=== PATIENT | male | born 1980 | race African-American/Black ===

== ENCOUNTER 2020-01-26 21:54 | Inpatient (IN) ==
[2020-01-26 22:29] LABS: Basophils # (auto) 0.02 K/uL (0-0.2); Basophils % (auto) 0.3 %; Eosinophils # (auto) 0.08 K/uL (0-0.5); Eosinophils % (auto) 1.2 %; Hematocrit (blood only) 42.3 % (42-52); Immature Granulocytes # (auto) 0.01 K/uL (0.00-0.02); Immature Granulocytes % (auto) 0.1 %; Lymphocytes # (auto) 3.16 K/uL (1.2-3.4); Lymphocytes % (auto) 46.6 %; Mean Corpuscular Hemoglobin 29.9 pg (25-34); Mean Corpuscular Hgb Conc 35.5 g/dL (32-36); Mean Corpuscular Volume 84.4 fL (80-100); Mean Platelet Volume 9.4 fL (7.4-10.4); Monocytes # (auto) 0.54 K/uL (0.11-0.59); Neutrophils # (auto) 2.97 K/uL (1.4-6.5); Neutrophils % (auto) 43.8 %; Platelet Count 390 K/uL (130-400); RDW Coefficient of Variation 12.4 % (11.5-14.5); RDW Standard Deviation 37.8 fL (36.4-46.3); Red Blood Count 5.01 M/uL (4.7-6.1); White Blood Count 6.78 K/uL (4.8-10.8)
[2020-01-26 22:49] LABS: Appearance Urine Clear (Clear); Bilirubin Urine Negative (Negative); Blood Urine Negative (Negative); Color Urine Yellow; Glucose Urine UA 3+ (Negative); Ketones Urine 1+ (Negative); Leukocyte Esterase Urine Negative (Negative); Nitrite Urine Negative (Negative); Protein Urine Negative (Negative); Specific Gravity Urine 1.039 (1.000-1.030); Urobilinogen Urine Negative (Negative)
[2020-01-26 22:58] LABS: Alanine Aminotransferase 34 U/L (12-78); Albumin Globulin Ratio 0.8 (0.9-2); Albumin Level 3.9 gm/dl (3.4-5.0); Alkaline Phosphatase 116 U/L (45-117); Aspartate Aminotransferase 15 U/L (15-37); BUN Creatinine Ratio 12.7 (10-20); Bilirubin,Total 0.6 mg/dl (0.2-1); Blood Urea Nitrogen 22 mg/dl (7-18); Calcium 10.2 mg/dl (8.5-10.1); Carbon Dioxide 21 mmol/L (21-32); Chloride 90 mmol/L (98-107); Creatinine Clr Calc Pharmacy 79.8 ml/min; Est GFR (African American) 55.6; Globulin 5.1 gm/dl (2.5-4.0); Glucose 669 mg/dl (70-99); Potassium 4.2 mmol/L (3.5-5.1); Sodium 124 mmol/L (136-145)
[2020-01-26] MEDS ORDERED: NovoLIN-R INSULIN PER UNIT CHARGE SC STA (23:17)
--- NOTE | 2020-01-26 23:17 | Emergency Department Note ---
History of Present Illness General Chief complaint: Hyperglycemia Stated complaint: HIGH BLOOD SUGAR Time Seen by Provider: 01/26/20 22:47 History of Present Illness Maximum Pain Intensity: 7 This is a 39-year-old male presenting to the emergency department from [facility] for evaluation of polyuria, polydipsia, lightheadedness, dizziness worsening over the past 2 days. The patient was seen in the [facility], and had a fingerstick glucose greater than 600. The patient was referred to the ER for further evaluation. The patient does not have a history of diabetes, but states that his father did have diabetes. The patient has been excessively thirsty, but does not report chest pain, chest tightness, or shortness of breath. No fevers or chills. He does take hydrochlorothiazide on a regular basis but no other medications. He rates his current discomfort a 7/10. 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 Beliefs That Will Affect Care: None Current Living Situation: Other Current Living Situation Comment: Skilled Nursing Feels Safe at Home: Yes Smoking Status: Former smoker Hx Alcohol Use: No Hx Substance Use: No Review of Systems A total of 10 systems reviewed and were otherwise negative Physical Exam Vital Signs Vital Signs - 24 hr 01/26/20 22:00 Temperature 37.1 C Temperature Source Oral Pulse Rate 116 H Respiratory Rate 20 Blood Pressure 145/76 H Blood Pressure Mean 99 Blood Pressure Position Sitting Pulse Oximetry 95 Oxygen Delivery Method Room Air Sepsis Recent Fever Within 48 Hours No Sepsis New/Unexplained Change in Mental Status No Sepsis Action Taken by Nursing No Action Required VITALS: Vitals are noted on the nurse's note and reviewed by myself. Vital signs stable. GENERAL: Well-developed, well-nourished, black male, who is in no acute distress and resting comfortably. Patient is cooperative with the examination. HEAD: Normocephalic atraumatic. EARS: External ear normal. External auditory canals clear, tympanic membranes pearly love without erythema or effusion bilaterally. EYES: Pupils equal round and reactive to light and accommodation. Conjunctivae without injection, sclerae without icterus. Extraocular movements intact. NOSE: Patent, turbinates without inflammation or discharge. MOUTH: Mucous membranes moist. Tonsils are not enlarged. Pharynx without erythema, blood, or exudate. Uvula midline. Airway patent. NECK: Supple without nuchal rigidity. No lymphadenopathy. No thyromegaly. Cervical spine is nontender. HEART: Regular rate and rhythm without murmurs gallops or rubs. LUNGS: Clear to auscultation bilaterally without wheezes, rales or rhonchi. No retractions or accessory muscle use. ABDOMEN: Positive normal bowel sounds x 4. Soft, nontender, without masses or organomegaly. No guarding or rebound tenderness. MUSCULOSKELETAL: No muscle atrophy, erythema, or edema noted. Full range of motion in all extremities. No tenderness to palpation. Normal gait. Strength 5/5 throughout. NEURO: Patient was alert and oriented to person place and time. CN II through XII grossly intact. No focal neurological deficits. Deep tendon reflexes 2+ throughout. SKIN: The skin was without rashes, erythema, edema, or bruising. Capillary refill less than 2 seconds. Course Administered Medications Acetaminophen (Tylenol) 650 mg PO Q4H PRN PRN Reason: Pain or Fever Stop: 02/26/20 02:09 Last Admin: 01/27/20 12:26 Dose: 650 mg Documented by: [id number] Heparin Sodium (Porcine) (Heparin Sodium (Porcine)) 5,000 units SQ Q8 [facility] Stop: 02/26/20 05:59 Last Admin: 01/27/20 21:30 Dose: 5,000 units Documented by: [id number] Cosigned by: [id number] Admin: 01/27/20 13:47 Dose: 5,000 units Documented by: [id number] Cosigned by: [id number] Admin: 01/27/20 05:35 Dose: 5,000 units Documented by: [id number] Cosigned by: [id number] Insulin Human Regular 250 (units/ Sodium Chloride) 250 mls @ 3 mls/hr IV .Q24H [facility]ORTENCIA; Protocol Stop: 02/26/20 00:29 Last Titration: 01/27/20 23:41 Dose: 3 units/hr, 3 mls/hr Documented by: [id number] Cosigned by: [id number] Titration: 01/27/20 22:42 Dose: 3 units/hr, 3 mls/hr Documented by: [id number] Cosigned by: [id number] Titration: 01/27/20 21:41 Dose: 3.8 units/hr, 3.8 mls/hr Documented by: [id number] Cosigned by: [id number] Titration: 01/27/20 21:24 Dose: 0 units/hr, 0 mls/hr Documented by: [id number] Cosigned by: [id number] Titration: 01/27/20 20:21 Dose: 4.8 units/hr, 4.8 mls/hr Documented by: [id number] Cosigned by: [id number] Titration: 01/27/20 19:26 Dose: 6 units/hr, 6 mls/hr Documented by: [id number] Cosigned by: [id number] Titration: 01/27/20 19:10 Dose: 6 units/hr, 6 mls/hr Documented by: [id number] Cosigned by: [id number] Titration: 01/27/20 18:18 Dose: 6 units/hr, 6 mls/hr Documented by: [id number] Cosigned by: [id number] Titration: 01/27/20 17:15 Dose: 4.3 units/hr, 4.3 mls/hr Documented by: [id number] Cosigned by: [id number] Titration: 01/27/20 16:17 Dose: 5.4 units/hr, 5.4 mls/hr Documented by: [id number] Cosigned by: [id number] Titration: 01/27/20 15:13 Dose: 6.7 units/hr, 6.7 mls/hr Documented by: [id number] Cosigned by: [id number] Titration: 01/27/20 14:14 Dose: 6.7 units/hr, 6.7 mls/hr Documented by: [id number] Cosigned by: [id number] Titration: 01/27/20 13:23 Dose: 5.6 units/hr, 5.6 mls/hr Documented by: [id number] Cosigned by: [id number] Titration: 01/27/20 10:57 Dose: 4 units/hr, 4 mls/hr Documented by: [id number] Cosigned by: [id number] Titration: 01/27/20 09:55 Dose: 4 units/hr, 4 mls/hr Documented by: [id number] Cosigned by: [id number] Titration: 01/27/20 08:49 Dose: 4 units/hr, 4 mls/hr Documented by: [id number] Cosigned by: [id number] Titration: 01/27/20 07:37 Dose: 0 units/hr, 0 mls/hr Documented by: [id number] Cosigned by: [id number] Titration: 01/27/20 06:27 Dose: 6.6 units/hr, 6.6 mls/hr Documented by: [id number] Cosigned by: [id number] Titration: 01/27/20 05:28 Dose: 8.2 units/hr, 8.2 mls/hr Documented by: [id number] Cosigned by: [id number] Titration: 01/27/20 04:35 Dose: 8.2 units/hr, 8.2 mls/hr Documented by: [id number] Cosigned by: [id number] Titration: 01/27/20 03:41 Dose: 8.2 units/hr, 8.2 mls/hr Documented by: [id number] Cosigned by: [id number] Titration: 01/27/20 02:29 Dose: 6.8 units/hr, 6.8 mls/hr Documented by: [id number] Cosigned by: [id number] Admin: 01/27/20 01:18 Dose: 5.7 units/hr, 5.7 mls/hr Documented by: [id number] Cosigned by: [id number] Insulin Aspart (Novolog Flexpen) 0 units SC ACHS [facility] Stop: 02/26/20 07:29 Last Admin: 01/27/20 21:25 Dose: Not Given Documented by: [id number] Cosigned by: [id number] Admin: 01/27/20 17:16 Dose: 13 units Documented by: [id number] Cosigned by: [id number] Admin: 01/27/20 12:24 Dose: 14 units Documented by: [id number] Cosigned by: [id number] Admin: 01/27/20 08:04 Dose: 8 units Documented by: [id number] Cosigned by: [id number] Insulin Human NPH (Novolin N Nph) 0 units SC BIDM HORTENCIA; Protocol Stop: 02/26/20 16:59 Last Admin: 01/27/20 17:15 Dose: 30 units Documented by: [id number] Cosigned by: [id number] Discontinued Medications Sodium Chloride (Nss 1000ml) 1,000 mls @ 999 mls/hr IV .Q1H1M [facility] Stop: 01/27/20 01:10 Last Infusion: 01/27/20 02:35 Dose: 0 mls/hr Documented by: [id number] Admin: 01/27/20 01:18 Dose: 999 mls/hr Documented by: [id number] Infusion: 01/27/20 00:51 Dose: 999 mls/hr Documented by: [id number] Admin: 01/26/20 23:50 Dose: 999 mls/hr Documented by: [id number] Lactated Ringer's (Lr) 1,000 mls @ 100 mls/hr IV .Q10H [facility] Stop: 01/27/20 12:14 Last Infusion: 01/27/20 09:52 Dose: 0 mls/hr Documented by: [id number] Infusion: 01/27/20 05:02 Dose: 100 mls/hr Documented by: [id number] Admin: 01/27/20 02:25 Dose: 200 mls/hr Documented by: [id number] Insulin Human NPH (Novolin N Nph) 30 units SC BIDM [facility] Stop: 02/26/20 07:59 Last Admin: 01/27/20 08:45 Dose: 30 units Documented by: [id number] Cosigned by: [id number] Insulin Human Regular (Novolin R U-100 Per Unit) 10 units SC NOW STA Stop: 01/26/20 23:18 Last Admin: 01/26/20 23:50 Dose: 10 units Documented by: [id number] Cosigned by: [id number] Insulin Human Regular (Novolin R Bolus From Bag) 5.5 units IV ONE ONE Stop: 01/27/20 00:46 Last Admin: 01/27/20 01:22 Dose: 5.5 units Documented by: [id number] Cosigned by: [id number] Miscellaneous (Insulin Protocol Goal Range) 1 ea N/A ONE STA Stop: 01/27/20 00:21 Last Admin: 01/27/20 01:23 Dose: 1 ea Documented by: [id number] Miscellaneous (Insulin Protocol Severe Stress) 1 ea N/A ONE STA Stop: 01/27/20 00:22 Last Admin: 01/27/20 01:23 Dose: 1 ea Documented by: [id number] Critical Care Time I have personally spent greater than 37 minutes of critical care time in the direct management of this patient. This includes bedside care, interpretation of diagnostic studies, and testing, discussion with consultants, patient, and family members, and other required patient management activities. This 37 minutes is in excess of all separately billable procedures. Medical Decision Making Differential Diagnosis Differential diagnosis: Etiologies such as diabetes, DKA, hyperglycemia, benign positional vertigo, labrynthitis, dehydration, hypovolemia, anemia, tumor, infection, hypoglycemia, electrolyte abnormalities, cardiac sources, toxicological sources, central neurologic process, as well as others were entertained. Laboratory Data Result diagrams: 01/27/20 03:56 01/27/20 03:56 Lab Results 01/26/20 01/26/20 01/26/20 Range/Units 22:06 22:12 22:18 WBC 6.78 (4.8-10.8) K/uL RBC 5.01 (4.7-6.1) M/uL Hgb 15.0 (14.0-18.0) g/dL Hct 42.3 (42-52) % MCV 84.4 (80-100) fL MCH 29.9 (25-34) pg MCHC 35.5 (32-36) g/dL RDW Std Deviation 37.8 (36.4-46.3) fL RDW Coeff of Donna 12.4 (11.5-14.5) % Plt Count 390 (130-400) K/uL MPV 9.4 (7.4-10.4) fL Immature Gran % (Auto) 0.1 % Neut % (Auto) 43.8 % Lymph % (Auto) 46.6 % [place] % (Auto) 8.0 % Eos % (Auto) 1.2 % Baso % (Auto) 0.3 % Immature Gran # (Auto) 0.01 (0.00-0.02) K/uL Neut # (Auto) 2.97 (1.4-6.5) K/uL Lymph # (Auto) 3.16 (1.2-3.4) K/uL [place] # (Auto) 0.54 (0.11-0.59) K/uL Eos # (Auto) 0.08 (0-0.5) K/uL Baso # (Auto) 0.02 (0-0.2) K/uL Sodium (136-145) mmol/L Potassium (3.5-5.1) mmol/L Chloride (98-107) mmol/L Carbon Dioxide (21-32) mmol/L Anion Gap (3-11) BUN (7-18) mg/dl Creatinine (0.6-1.4) mg/dl Est Cr Clr Drug Dosing ml/min Est GFR ( Amer) Est GFR (Non-Af Amer) BUN/Creatinine Ratio (10-20) Glucose (70-99) mg/dl POC Glucose > 600 H* 598 H* (70-99) mg/dl Estimat Average Glucose mg/dl Hemoglobin A1c (4.5-5.6) % Osmolality (280-300) mOsm/kg Calcium (8.5-10.1) mg/dl Magnesium (1.8-2.4) mg/dl Total Bilirubin (0.2-1) mg/dl AST (15-37) U/L ALT (12-78) U/L Alkaline Phosphatase (45-117) U/L Troponin I (0-0.045) ng/ml Total Protein (6.4-8.2) gm/dl Albumin (3.4-5.0) gm/dl Globulin (2.5-4.0) gm/dl Albumin/Globulin Ratio (0.9-2) Lipase (73-393) U/L Beta-Hydroxybutyric Acd (0.2-2.81) mg/dl TSH (0.300-4.500) uIu/ml Specimen Hemolysis Urine Color Urine Appearance (Clear) Urine pH (4.5-7.5) Ur Specific [place] (1.000-1.030) Urine Protein (Negative) Urine Glucose (UA) (Negative) Urine Ketones (Negative) Urine Blood (Negative) Urine Nitrite (Negative) Urine Bilirubin (Negative) Urine Urobilinogen (Negative) Ur Leukocyte Esterase (Negative) Urine Osmolality (500-800) mOsm/kg Ur Random Sodium mmol/L 01/26/20 01/26/20 01/26/20 Range/Units 22:18 22:18 22:18 WBC (4.8-10.8) K/uL RBC (4.7-6.1) M/uL Hgb (14.0-18.0) g/dL Hct (42-52) % MCV (80-100) fL MCH (25-34) pg MCHC (32-36) g/dL RDW Std Deviation (36.4-46.3) fL RDW Coeff of Donna (11.5-14.5) % Plt Count (130-400) K/uL MPV (7.4-10.4) fL Immature Gran % (Auto) % Neut % (Auto) % Lymph % (Auto) % [place] % (Auto) % Eos % (Auto) % Baso % (Auto) % Immature Gran # (Auto) (0.00-0.02) K/uL Neut # (Auto) (1.4-6.5) K/uL Lymph # (Auto) (1.2-3.4) K/uL [place] # (Auto) (0.11-0.59) K/uL Eos # (Auto) (0-0.5) K/uL Baso # (Auto) (0-0.2) K/uL Sodium 124 L (136-145) mmol/L Potassium 4.2 (3.5-5.1) mmol/L Chloride 90 L (98-107) mmol/L Carbon Dioxide 21 (21-32) mmol/L Anion Gap 12.0 H (3-11) BUN 22 H (7-18) mg/dl Creatinine 1.73 H (0.6-1.4) mg/dl Est Cr Clr Drug Dosing 79.8 ml/min Est GFR ( Amer) 55.6 Est GFR (Non-Af Amer) 48.0 BUN/Creatinine Ratio 12.7 (10-20) Glucose 669 H* (70-99) mg/dl POC Glucose (70-99) mg/dl Estimat Average Glucose 275 mg/dl Hemoglobin A1c 11.2 H (4.5-5.6) % Osmolality 311 H (280-300) mOsm/kg Calcium 10.2 H (8.5-10.1) mg/dl Magnesium 2.1 (1.8-2.4) mg/dl Total Bilirubin 0.6 (0.2-1) mg/dl AST 15 (15-37) U/L ALT 34 (12-78) U/L Alkaline Phosphatase 116 (45-117) U/L Troponin I < 0.015 (0-0.045) ng/ml Total Protein 9.0 H (6.4-8.2) gm/dl Albumin 3.9 (3.4-5.0) gm/dl Globulin 5.1 H (2.5-4.0) gm/dl Albumin/Globulin Ratio 0.8 L (0.9-2) Lipase 285 (73-393) U/L Beta-Hydroxybutyric Acd 18.38 H (0.2-2.81) mg/dl TSH 1.250 (0.300-4.500) uIu/ml Specimen Hemolysis Urine Color Urine Appearance (Clear) Urine pH (4.5-7.5) Ur Specific [place] (1.000-1.030) Urine Protein (Negative) Urine Glucose (UA) (Negative) Urine Ketones (Negative) Urine Blood (Negative) Urine Nitrite (Negative) Urine Bilirubin (Negative) Urine Urobilinogen (Negative) Ur Leukocyte Esterase (Negative) Urine Osmolality (500-800) mOsm/kg Ur Random Sodium mmol/L 01/26/20 01/26/20 01/26/20 Range/Units 22:35 22:35 22:35 WBC (4.8-10.8) K/uL RBC (4.7-6.1) M/uL Hgb (14.0-18.0) g/dL Hct (42-52) % MCV (80-100) fL MCH (25-34) pg MCHC (32-36) g/dL RDW Std Deviation (36.4-46.3) fL RDW Coeff of Donna (11.5-14.5) % Plt Count (130-400) K/uL MPV (7.4-10.4) fL Immature Gran % (Auto) % Neut % (Auto) % Lymph % (Auto) % [place] % (Auto) % Eos % (Auto) % Baso % (Auto) % Immature Gran # (Auto) (0.00-0.02) K/uL Neut # (Auto) (1.4-6.5) K/uL Lymph # (Auto) (1.2-3.4) K/uL [place] # (Auto) (0.11-0.59) K/uL Eos # (Auto) (0-0.5) K/uL Baso # (Auto) (0-0.2) K/uL Sodium (136-145) mmol/L Potassium (3.5-5.1) mmol/L Chloride (98-107) mmol/L Carbon Dioxide (21-32) mmol/L Anion Gap (3-11) BUN (7-18) mg/dl Creatinine (0.6-1.4) mg/dl Est Cr Clr Drug Dosing ml/min Est GFR ( Amer) Est GFR (Non-Af Amer) BUN/Creatinine Ratio (10-20) Glucose (70-99) mg/dl POC Glucose (70-99) mg/dl Estimat Average Glucose mg/dl Hemoglobin A1c (4.5-5.6) % Osmolality (280-300) mOsm/kg Calcium (8.5-10.1) mg/dl Magnesium (1.8-2.4) mg/dl Total Bilirubin (0.2-1) mg/dl AST (15-37) U/L ALT (12-78) U/L Alkaline Phosphatase (45-117) U/L Troponin I (0-0.045) ng/ml Total Protein (6.4-8.2) gm/dl Albumin (3.4-5.0) gm/dl Globulin (2.5-4.0) gm/dl Albumin/Globulin Ratio (0.9-2) Lipase (73-393) U/L Beta-Hydroxybutyric Acd (0.2-2.81) mg/dl TSH (0.300-4.500) uIu/ml Specimen Hemolysis Urine Color Yellow Urine Appearance Clear (Clear) Urine pH 5.0 (4.5-7.5) Ur Specific [place] 1.039 H (1.000-1.030) Urine Protein Negative (Negative) Urine Glucose (UA) 3+ H (Negative) Urine Ketones 1+ H (Negative) Urine Blood Negative (Negative) Urine Nitrite Negative (Negative) Urine Bilirubin Negative (Negative) Urine Urobilinogen Negative (Negative) Ur Leukocyte Esterase Negative (Negative) Urine Osmolality 667 (500-800) mOsm/kg Ur Random Sodium 27 mmol/L Imaging Data Radiologist's Impression: XR chest 1V portable CLINICAL HISTORY: renal failure COMPARISON STUDY: No previous studies for comparison. FINDINGS: The cardiac and mediastinal contours are normal. There is no evidence of focal pulmonary consolidation. There is no evidence of failure. No pleural effusions are visualized.[A vague opacity at the left lung base is felt to represent a summation. IMPRESSION: No active disease in the chest. ECG Data Attestation: I personally reviewed and interpreted this ECG as follows: Indication: + other (Hyperglycemia) Additional Comments: Normal sinus rhythm @[address] elevation or ectopy Prolonged QT Abnormal ECG No previous ECGs available MDM Narrative Physical exam and history were performed. Nursing notes, EMR, and Medication List were personally reviewed. Patient appears to have reports of elevated blood sugar at the half-way. He is not diabetic, but his story is concerning as his sugar was reported to be over 600. IV access was established and labs were obtained. We began to hydrate the patient with normal saline. EKG is as above without acute ST elevation. Patient blood work is as above and was reviewed. He does not have a significantly elevated white blood cell count or gross anemia. Creatinine is slightly elevated at 1.41. Glucose is concerning as it has returned at 669. He is ketotic with beta hydroxy greater than 18. Serum osmolality is elevated at 311. Troponin and transaminases are not diagnostic. TSH shows euthyroid state. He does have glucose in his urine. Chest x-ray was reviewed by myself and radiology showing no acute process. The patient was given additional IV fluids as well as 10 units subcu insulin. An order was placed for continuous cardiac monitoring. The monitor shows a rate of 81 with normal sinus rhythm. Overall the patient does not appear well for discharge home. He is significantly hyperglycemic with ketones. Case was discussed with the on-call hospitalist team who agreed to evaluate the patient here in the ER. Please see their dictation for further patient course, plan, disposition. The chart was completed utilizing [employer] Speech Voice Recognition Software. Grammatical errors, random word insertions, pronoun errors, and incomplete sentences are an occasional consequence of this system due to software limitations, ambient noise, and hardware issues. Any formal questions or concerns about the content, text, or information contained within the body of this dictation should be directly addressed to the provider for clarification. . Impression & Plan Hyperglycemic crisis in diabetes mellitus, Newly diagnosed diabetes Discharge Plan Visit Data *Final* Discharge Date/Time: 01/27/20 02:03 Chief Complaint: Hyperglycemia Stated Complaint: HIGH BLOOD SUGAR ED Provider: Júnior Cohen ED Midlevel Provider: Orion Romero Discharge Problem: Hyperglycemic crisis in diabetes mellitus, Newly diagnosed diabetes Patient Disposition: Admitted As Inpatient Discharge Instructions Interventions: ED Discharge Assessment Last Done: 01/27/20 02:03
[2020-01-26 23:28] LABS: Beta-Hydroxybutyrate 18.38 mg/dl (0.2-2.81)
[2020-01-26] MEDS: SODIUM CHLORIDE 0.9% 1000ML 1,000 ML IV SCH (23:50)
[2020-01-27] MEDS ORDERED: INSULIN PROTOCOL GOAL RANGE STA (00:20)
[2020-01-27] MEDS ORDERED: SEVERE STRESS LEVEL STA (00:21)
[2020-01-27 00:33] LABS: Lipase 285 U/L (73-393)
--- NOTE | 2020-01-27 00:42 | History & Physical Report ---
Date of Service January 27, 2020 Assessment & Plan (1) Hyperglycemic crisis in diabetes mellitus: New diagnosis of diabetes mellitus Hypertension, slight elevated ARF secondary to illness, home diuretic contributory Past tobacco abuse Medical telemetry IV insulin Pharmacy glycemic control consult DM education Monitor creatinine response to IVF Hold HCTZ for now Consider initiation of ACEI once kidney function improves. Outpatient eye examination RE blurred vision, new diagnosis DM DVT prophylaxis. Heparin subcu Full code Text document was generated using [employer] voice recognition software. It may contain grammatical or spelling errors. Kindly contact undersigned for clarification of any documentation item in question. History of Present Illness Chief Complaint: High blood sugar Primary Care Provider: SOPHIA Torres History obtained from patient and records. Medical history significant for hypertension, past tobacco abuse. Patient has been incarcerated at [facility] by the last 2 months. Last week, patient noted polyuria, polydipsia, dizziness described as lightheadedness symptoms. Some blurred vision. No chest pain, no S OB, no abdominal pain. Appetite good. Fingerstick glucose done at correctional facility noted to be 600. Patient given subcutaneous insulin and IV fluids upon arrival at the ER. 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 Allergies Allergy/AdvReac Type Severity Reaction Status Date / Time No Known Allergies Allergy Unverified 01/26/20 23:08 Home Medications Home Medications Medication Instructions Recorded Confirmed Type hydrochlorothiazide 12.5 mg PO DAILY 01/26/20 01/26/20 History undecylenic acid [Fungi-Nail] 1 applic TOPICAL DAILY 01/26/20 01/26/20 History Past Med/Surg History Medical History Hypertension Surgical History History of hernia repair Social History Preferred Language: Irish Communication Ability: Effective Electrical Appliance Servicer Required: No Beliefs That Will Affect Care: None Current Living Situation: Other Current Living Situation Comment: [facility] Feels Safe at Home: Yes Smoking Status: Former smoker Hx Alcohol Use: No Hx Substance Use: No Review of Systems Review of Systems: As per HPI, all 10 systems reviewed, all other ROS negative Physical Exam Physical Exam: GENERAL: Comfortable, obese, pleasant, no respiratory distress SKIN: Normal color, warm HEENT: [place] palpebral conjunctivae, no ptosis, dry buccal mucosa NECK : Supple, short neck, no tenderness CHEST : CTA, no tenderness HEART : Tachycardic, no obvious murmurs ABDOMEN: Some distention, nontender EXTREMITIES : Minimal LE swelling, no LE tenderness, no other conspicuous deformities noted NEUROLOGIC : Coherent, no facial asymmetry, no other gross focality Results & Data Results & Data ([facility]) Vital Signs (Past 12 Hours) Vital Signs Temp Pulse Resp BP Pulse Ox 01/26/20 22:00 37.1 C 116 H 20 145/76 H 95 Laboratory Results Laboratory Results WBC 6.78 K/uL (4.8-10.8) 01/26/20 22:18 RBC 5.01 M/uL (4.7-6.1) 01/26/20 22:18 Hgb 15.0 g/dL (14.0-18.0) 01/26/20 22:18 Hct 42.3 % (42-52) 01/26/20 22:18 MCV 84.4 fL (80-100) 01/26/20 22:18 MCH 29.9 pg (25-34) 01/26/20 22:18 MCHC 35.5 g/dL (32-36) 01/26/20 22:18 RDW Std Deviation 37.8 fL (36.4-46.3) 01/26/20 22:18 RDW Coeff of Donna 12.4 % (11.5-14.5) 01/26/20 22:18 Plt Count 390 K/uL (130-400) 01/26/20 22:18 MPV 9.4 fL (7.4-10.4) 01/26/20 22:18 Immature Gran % (Auto) 0.1 % 01/26/20 22:18 Neut % (Auto) 43.8 % 01/26/20 22:18 Lymph % (Auto) 46.6 % 01/26/20 22:18 [place] % (Auto) 8.0 % 01/26/20 22:18 Eos % (Auto) 1.2 % 01/26/20 22:18 Baso % (Auto) 0.3 % 01/26/20 22:18 Immature Gran # (Auto) 0.01 K/uL (0.00-0.02) 01/26/20 22:18 Neut # (Auto) 2.97 K/uL (1.4-6.5) 01/26/20 22:18 Lymph # (Auto) 3.16 K/uL (1.2-3.4) 01/26/20 22:18 [place] # (Auto) 0.54 K/uL (0.11-0.59) 01/26/20 22:18 Eos # (Auto) 0.08 K/uL (0-0.5) 01/26/20 22:18 Baso # (Auto) 0.02 K/uL (0-0.2) 01/26/20 22:18 Sodium 124 mmol/L (136-145) L 01/26/20 22:18 Potassium 4.2 mmol/L (3.5-5.1) 01/26/20 22:18 Chloride 90 mmol/L (98-107) L 01/26/20 22:18 Carbon Dioxide 21 mmol/L (21-32) 01/26/20 22:18 Anion Gap 12.0 (3-11) H 01/26/20 22:18 BUN 22 mg/dl (7-18) H 01/26/20 22:18 Creatinine 1.73 mg/dl (0.6-1.4) H 01/26/20 22:18 Est Cr Clr Drug Dosing 79.8 ml/min 01/26/20 22:18 Est GFR ( Amer) 55.6 01/26/20 22:18 Est GFR (Non-Af Amer) 48.0 01/26/20 22:18 BUN/Creatinine Ratio 12.7 (10-20) 01/26/20 22:18 Glucose 669 mg/dl (70-99) H* 01/26/20 22:18 POC Glucose 598 mg/dl (70-99) H* 01/26/20 22:12 Calcium 10.2 mg/dl (8.5-10.1) H 01/26/20 22:18 Total Bilirubin 0.6 mg/dl (0.2-1) 01/26/20 22:18 AST 15 U/L (15-37) 01/26/20 22:18 ALT 34 U/L (12-78) 06/05/20 22:18 Alkaline Phosphatase 116 U/L (45-117) 01/26/20 22:18 Total Protein 9.0 gm/dl (6.4-8.2) H 01/26/20 22:18 Albumin 3.9 gm/dl (3.4-5.0) 01/26/20 22:18 Globulin 5.1 gm/dl (2.5-4.0) H 01/26/20 22:18 Albumin/Globulin Ratio 0.8 (0.9-2) L 01/26/20 22:18 Lipase 285 U/L (73-393) 01/26/20 22:18 Beta-Hydroxybutyric Acd 18.38 mg/dl (0.2-2.81) H 01/26/20 22:18 Specimen Hemolysis 01/26/20 22:18 Urine Color Yellow 01/26/20 22:35 Urine Appearance Clear (Clear) 01/26/20 22:35 Urine pH 5.0 (4.5-7.5) 01/26/20 22:35 Ur Specific [place] 1.039 (1.000-1.030) H 01/26/20 22:35 Urine Protein Negative (Negative) 01/26/20 22:35 Urine Glucose (UA) 3+ (Negative) H 01/26/20 22:35 Urine Ketones 1+ (Negative) H 01/26/20 22:35 Urine Blood Negative (Negative) 01/26/20 22:35 Urine Nitrite Negative (Negative) 01/26/20 22:35 Urine Bilirubin Negative (Negative) 01/26/20 22:35 Urine Urobilinogen Negative (Negative) 01/26/20 22:35 Ur Leukocyte Esterase Negative (Negative) 01/26/20 22:35 Diagnostic Findings Chest x-ray as per my interpretation: Cardiomegaly, atelectasis EKG pending
[2020-01-27] MEDS ORDERED: GLUCOSE 10 TABS/TUBE PO PRN (00:45)
[2020-01-27] MEDS ORDERED: DEXTROSE 50% 50 ML SYRINGE IV PRN (00:45)
[2020-01-27] MEDS ORDERED: CARBOHYDRATES FOR HYPOGLYCEMIA PO PRN (00:45)
[2020-01-27] MEDS ORDERED: NovoLIN-R BOLUS FROM BAG IV ONE (00:45)
[2020-01-27] MEDS ORDERED: GLUCOSE 40% GEL 15 GM TUBE PO PRN (00:45)
[2020-01-27] MEDS ORDERED: GLUCAGON FOR INJ 1 MG VIAL IM PRN (00:45)
[2020-01-27 00:53] LABS: Troponin I < 0.015 ng/ml (0-0.045)
[2020-01-27] MEDS: SODIUM CHLORIDE 0.9% 1000ML 1,000 ML IV SCH (01:18)
[2020-01-27] MEDS: INSULIN REGULAR 250 UNITS in SODIUM CHLORIDE 0.9% 247.5 ML IV SCH (01:18)
[2020-01-27] MEDS ORDERED: OXYCODONE HCL IR 5 MG TAB (IMMEDIATE RELEASE) PO PRN (02:10)
[2020-01-27] MEDS ORDERED: ACETAMINOPHEN 325 MG TAB PO PRN ×2 (02:10→02:14)
[2020-01-27] MEDS ORDERED: PROMETHAZINE HCL 12.5 MG in SODIUM CHLORIDE 0.9% 50 ML IV PRN (02:10)
[2020-01-27] MEDS ORDERED: LACTATED RINGER'S 1,000 ML IV SCH (02:15)
[2020-01-27 02:24] LABS: Magnesium 2.1 mg/dl (1.8-2.4)
[2020-01-27 04:11] LABS: Hematocrit (blood only) 40.1 % (42-52); Hemoglobin 14.1 g/dL (14.0-18.0); Mean Corpuscular Hemoglobin 29.5 pg (25-34); Mean Corpuscular Hgb Conc 35.2 g/dL (32-36); Mean Corpuscular Volume 83.9 fL (80-100); Mean Platelet Volume 8.8 fL (7.4-10.4); Platelet Count 363 K/uL (130-400); RDW Coefficient of Variation 12.4 % (11.5-14.5); RDW Standard Deviation 37.7 fL (36.4-46.3); Red Blood Count 4.78 M/uL (4.7-6.1); White Blood Count 6.26 K/uL (4.8-10.8)
[2020-01-27 04:33] LABS: BUN Creatinine Ratio 12.9 (10-20); Calcium 9.3 mg/dl (8.5-10.1); Est GFR (African American) 71.2; Est GFR (Non-African American) 61.4; Potassium 3.6 mmol/L (3.5-5.1)
[2020-01-27] MEDS ORDERED: PHARMACY GLYCEMIC MGMT CONSULT PRN (04:43)
[2020-01-27 05:22] LABS: Basophils # (auto) 0.02 K/uL (0-0.2); Basophils % (auto) 0.3 %; Eosinophils # (auto) 0.08 K/uL (0-0.5); Eosinophils % (auto) 1.3 %; Lymphocytes # (auto) 3.39 K/uL (1.2-3.4); Lymphocytes % (auto) 54.2 %; Monocytes # (auto) 0.59 K/uL (0.11-0.59); Monocytes % (auto) 9.4 %; Neutrophils # (auto) 2.18 K/uL (1.4-6.5); Neutrophils % (auto) 34.8 %; RBC Morphology Unremarkable
[2020-01-27] MEDS: HEPARIN SOD 5,000 UNIT/0.5 ML VIAL SQ SCH ×3 (05:35→21:30)
[2020-01-27 06:11] LABS: Estimated Average Glucose 275 mg/dl; Hemoglobin A1C 11.2 % (4.5-5.6)
--- NOTE | 2020-01-27 07:18 | XRay Report ---
XR chest 1V portable CLINICAL HISTORY: renal failure COMPARISON STUDY: No previous studies for comparison. FINDINGS: The cardiac and mediastinal contours are normal. There is no evidence of focal pulmonary co nsolidation. There is no evidence of failure. No pleural effusions are visualized.[A vague opacity at the left lung base is felt to represent a summation. IMPRESSION: No active disease in the chest. ACT 112: Negative or not required by law. Electronically signed by: Kaleb Gonzales M.D. 01/27/2020 7:17 AM
[2020-01-27] MEDS ORDERED: INSULIN HUMAN NPH SC SCH (08:00)
[2020-01-27] MEDS: INSULIN ASPART 100 UNITS/ML 3 ML PEN SC SCH ×4 (08:04→21:25)
--- NOTE | 2020-01-27 10:58 | Pharmacy Report ---
Glycemic Control Consultation - Date of Service January 27, 2020 - Scope Scope: Glycemic Pharmacist consulted for glycemic control and to write orders per [facility] inpatient glycemic control protocol. - Objective Weight: 170.1 kg Accuchecks BSG (last 24hrs): 01/26/20 01/26/20 01/26/20 22:06 22:12 22:18 Glucose 669 H* POC Glucose > 600 H* 598 H* 01/27/20 01/27/20 01/27/20 02:27 03:34 03:35 Glucose POC Glucose 390 H* 308 H* 348 H* 01/27/20 01/27/20 01/27/20 03:56 04:34 05:27 Glucose 310 H* POC Glucose 287 H 211 H 01/27/20 01/27/20 01/27/20 06:26 07:32 08:01 Glucose POC Glucose 140 H 112 H 96 01/27/20 01/27/20 01/27/20 08:22 08:43 09:49 Glucose POC Glucose 143 H 174 H 177 H Laboratory Data (last 24hrs): 01/26/20 01/26/20 01/27/20 22:18 22:18 03:56 Potassium 4.2 3.6 Carbon Dioxide 21 25 Anion Gap 12.0 H 8.0 Creatinine 1.73 H 1.41 H D Est Cr Clr Drug Dosing 79.8 105.0 Osmolality 311 H Beta-Hydroxybutyric Acd 18.38 H 01/27/20 01/27/20 05:24 07:39 Potassium Carbon Dioxide Anion Gap Creatinine Est Cr Clr Drug Dosing Osmolality Beta-Hydroxybutyric Acd Cancelled 3.70 H HbA1c: Hemoglobin A1c 11.2 % (4.5-5.6) H 01/26/20 22:18 - Recent Pertinent Medications Outpatient Anti-diabetic Regimen: * n/a New diagnosis per A1c The patient is currently receiving: * IV Insulin infusion per protocol * Goal range 150-250 mg/dl * infusion rate ~ 4 - 8.2 units/hr - Assessment & Plan Assessment & Plan: ASSESSMENT: * 39yo male with new diagnosis of diabetes - presumably type 2 based on age, body weight, etc. * Pt initiated on IV insulin infusion per protocol. Hyperglycemia resolving this morning after ~ 9 hrs on infusion * Pt meets criteria to transition to SQ basal bolus insulin regimen. * Average infusion rate this morning ~ 4 units/hr equating to ~ 100 units of insulin per day. This is consistent with weight and high stress dosing per [facility] calculator. Will start with aggressive dosing to transition off of insulin infusion and titrate down once steady state is reached. High insulin resistance is common immediately following hyperglycemic crisis. PLAN FOR INPATIENT GLYCEMIC CONTROL: * Transition off of IV insulin infusion per protocol * Will use basal insulin with NPH since this is detention formulary - pt will need insulin at dc. * NPH 30 units SQ x 1 dose this AM. Continue to overlap IV with SQ insulin regimen until BSG < 180 AND IV insulin infusion rate is 1 unit/hr or below. May dc infusion when BOTH criteria met. PM dose of NPH to be determined based on BSG - likely 20-30 units as well. Will set a BSG scale dose * Bolus insulin * NovoLog per scale ACHS or Q6hrs while NPO * Goal Range: Low 110 mg/dL - High 150 mg/dL * Correction Factor: 15 mg/dL/unit * Nutritional / Prandial insulin per carb ratio of 1 unit per 5 grams CHO consumed Looking ahead to discharge: * Based on Ac > 10% pt will need both basal AND prandial insulin * Use NPH & regular since this is detention formulary. May use insulin separately or use premised insulin. Doses TBD * Please note that the plan above was derived based on current level of insulin resistance and hospital stress. These recommendations are appropriate for inpatient admission only. Plan of care upon discharge will need to be reassessed to avoid potential outpatient hypo/hyperglycemia. Thank you.
[2020-01-27] MEDS ORDERED: DC IV INSULIN INFUSION 1 EA DEVI SCH (12:00)
--- NOTE | 2020-01-27 15:47 | Hospitalist Progress Note ---
Date of Service January 27, 2020 Assessment & Plan (1) Newly diagnosed diabetes: Was sent for [facility] for evaluation of polyuria, polydipsia, lightheadedness, dizziness worsening Glucose on admission 669 Hba1c 11.2 Anion Gap on admission 12, now 8 Received IVF and was starting on insulin drip Pharmacy on board for glycemic management Plan to transition to NPH discussed with patient about lifestyles modification such as diet, exercise and weight loss Diabetes complication discussed with patient such as renal disease that can lead to ESRD on HD, heart disease, stroke, blindness, amputation, .... Will need diabetic eye exam outpatient Diabetic education Continue monitor BS DANA Possible related to dehydration Creatinine on admission 1.7 Received IVF Creatinine improves to 1.4 Continue to hold HCTZ HTN BP mildly elevated HCTZ on hold due to elevated creatinine Plan to add low dose Lisinopril once creatinine at baseline Will add hydralazine prn Continue monitor BP Morbid obesity BMI 58 Counseling on diet, exercise and weight loss DVT px on heparin subq Code Status Full code Admission and Anticipated Discharge Date Admission Date: January 27, 2020 Subjective Pt was seen and examined Lying in bed with no distress with 2 officers at bedside Pt said that he feels fine Denies any chest pain, palpitation, dizziness and SOB Physical Exam Physical Exam: General- No acute distress Head- atraumatic Eyes- PERRL, EOMI, ENT- oropharynx clear Neck- supple, no JVD Lungs- clear to auscultation Heart- regular rhythm; no murmur Abdomen- normal bowel sounds, soft, nontender Extremities- no calf tenderness Neuro- alert, oriented x 3; PERRL, EOMI; no facial palsy; no dysarthria Skin- warm & dry Results & Data Results & Data ([facility]) Vital Signs (Past 12 Hours) Vital Signs Temp Pulse Pulse Resp BP BP Pulse Ox 01/27/20 15:34 37 C 84 18 147/90 H 96 01/27/20 12:30 37.2 C 88 18 136/80 90 01/27/20 08:03 36.8 C 81 20 142/91 H 95 01/27/20 07:16 82
[2020-01-27] MEDS: INSULIN HUMAN NPH SC SCH (17:15)
--- NOTE | 2020-01-27 22:15 | Electrocardiogram Report ---
Test Reason : Blood Pressure : / mmHG Vent. Rate : 082 BPM Atrial Rate : 082 BPM P-R Int : 166 ms QRS Dur : 102 ms QT Int : 466 ms P-R-T Axes : 072 050 051 degrees QTc Int : 544 ms Normal sinus rhythm Prolonged QT Abnormal ECG No previous ECGs available Confirmed by Gucci Jeffers ([id number]) on 01/27/2020 10:15:15 PM Referred By: Brian CORTES Confirmed By:Gucci Jeffers
[2020-01-28] MEDS: INSULIN REGULAR 250 UNITS in SODIUM CHLORIDE 0.9% 247.5 ML IV SCH (01:12)
[2020-01-28] MEDS: HEPARIN SOD 5,000 UNIT/0.5 ML VIAL SQ SCH ×2 (06:14→14:17)
[2020-01-28 06:40] LABS: BUN Creatinine Ratio 12.2 (10-20); Calcium 8.8 mg/dl (8.5-10.1); Creatinine Clr Calc Pharmacy 136.2 ml/min; Est GFR (African American) 97.2; Est GFR (Non-African American) 83.9; Potassium 3.2 mmol/L (3.5-5.1)
[2020-01-28 06:42] LABS: Beta-Hydroxybutyrate 3.33 mg/dl (0.2-2.81)
[2020-01-28] MEDS ORDERED: POTASSIUM CHLORIDE 20 MEQ TABCR PO STA (08:31)
[2020-01-28] MEDS: INSULIN HUMAN NPH SC SCH ×2 (08:41→17:42)
[2020-01-28] MEDS: INSULIN ASPART 100 UNITS/ML 3 ML PEN SC SCH ×3 (08:42→17:43)
[2020-01-28] MEDS: DC IV INSULIN INFUSION 1 EA DEVI SCH ×3 (09:51→15:43)
--- NOTE | 2020-01-28 11:14 | Pharmacy Report ---
Pharmacy Glycemic Short Note 2 - Date of Service January 28, 2020 - Glycemic Short BSG Results (Last 24 hours): 01/27/20 01/27/20 01/27/20 12:02 13:11 14:10 Glucose POC Glucose 142 H 228 H 274 H 01/27/20 01/27/20 01/27/20 15:07 16:07 17:07 Glucose POC Glucose 263 H 209 H 167 H 01/27/20 01/27/20 01/27/20 18:15 19:20 20:17 Glucose POC Glucose 248 H 241 H 186 H 01/27/20 01/27/20 01/27/20 21:20 21:35 22:40 Glucose POC Glucose 135 H 135 H 124 H 01/27/20 01/28/20 01/28/20 23:38 00:39 01:44 Glucose POC Glucose 148 H 132 H 146 H 01/28/20 01/28/20 01/28/20 02:43 03:45 04:53 Glucose POC Glucose 165 H 154 H 150 H 01/28/20 01/28/20 01/28/20 05:34 06:46 07:14 Glucose 146 H POC Glucose 165 H 145 H 01/28/20 09:43 Glucose POC Glucose 290 H OUTPATIENT ANTIDIABETIC REGIMEN: * N/A - new diagnosis based on A1c of 11.2% on 01/26/20 ASSESSMENT: * 39yo male with new diagnosis of diabetes - presumably type 2 based on age, body weight, etc. * Pt initiated on IV insulin infusion per protocol. Metabolic abnormalities resolving iwth IV insulin infusion. Pt has had a long IV --> SQ transition . Dosed SQ basal bolus regimen aggressively at ~ 1unit/kg total daily dose but IV insulin infusion still running at 3-4 units/hr despite those large doses of SQ. Increased insulin dosing this morning and will stop insulin infusion with lunch. * Pt has received 95 units of SQ insulin over the past 24hrs & 100+ units of IV insulin infusion * 60 units of basal insulin with NPH * 35 units of bolus insulin with Novolog CHO coverage * 100+ units of IV insulin via infusion at 3-4 units/hr * Significant insulin resistance persists after DKA - will not convert this 1:1 to all SQ but will increase SQ slightly to facilitate drip dc. PLAN FOR INPATIENT GLYCEMIC CONTROL: * Basal insulin * Increase to NPH 35 units SQ BIDM * Bolus insulin- tighten parameters * NovoLog per scale ACHS or Q6hrs while NPO * Goal Range: Low 110 mg/dL - High 140 mg/dL * Correction Factor: 10 mg/dL/unit * Nutritional / Prandial insulin per carb ratio of 1 unit per 4 grams CHO consumed PLAN FOR DISCHARGE: * A1c = 11.2% * A1c is greater than or equal to 10% consider metformin + combination injectable therapy (basal insulin + rapid acting insulin OR GLP1-RA) * Metformin, if not contraindicated and if tolerated, is the preferred initial pharmacological agent for type 2 diabetes. Metformin has a long- standing evidence base for efficacy and safety, is inexpensive, and may reduce risk of cardiovascular events. * B12 supplementation may be necessary with [facility] metformin use * Recommend starting Metformin XR 500mg PO daily with dinner * Continue to titrate metformin dosing upwards as recommended. Dosage increases should be made in increments of 500 mg weekly, up to 2,000 mg/day PO, given in divided doses. Doses above 2000 mg/day may be better tolerated if divided and given 3 times per day with meals. Max: 2,550 mg/day PO, in divided doses * Use NPH & regular since this is [facility] formulary. d/w provider and prefer to use premixed NPH/Regular 70/30 insulin to minimize number of injections. * Recommend Novolin 70/30 premixed insulin 60 units in AM with breakfast + 30 units in PM with dinner * Pt will need dosing titrated based on BSG trends * Goal BSG range = 100-140 mg/dl
--- NOTE | 2020-01-28 14:27 | Hospitalist Progress Note ---
Date of Service January 28, 2020 Assessment & Plan (1) Newly diagnosed diabetes: Was sent for [facility] for evaluation of polyuria, polydipsia, lightheadedness, dizziness worsening Glucose on admission 669 Hba1c 11.2 Anion Gap on admission 12, now 8 Received IVF and was starting on insulin drip Pharmacy on board for glycemic management Insulin drip discontinued Case discussed with Pharmacy recommended 2 options Option 1: insulin 70/30 Option 2: NPH 35 units BID + regular insulin 10unit with each meal Pharmacy recommended insulin 70/30 to take 60 units in AM with breakfast and 30 units in PM with meals Will start on Metformin 500mg daily Discussed with patient about lifestyles modification such as diet, exercise and weight loss Diabetes complication discussed with patient such as renal disease that can lead to ESRD on HD, heart disease, stroke, blindness, amputation, .... Will need diabetic eye exam outpatient Diabetic education Continue monitor BS and and titrate insulin if needs Check Hba1C in 3 months DANA Possible related to dehydration Creatinine on admission 1.7 Received IVF Creatinine back to normal Resume HCTZ on discharge Check BMP in 1 week HTN BP mildly elevated HCTZ was on hold due to elevated creatinine HCTZ resumed Will start on low dose of Lisinopril 5 mg Continue monitor BP Check BMP in 1 week to monitor electrolytes and renal function Morbid obesity BMI 58 Counseling on diet, exercise and weight loss DVT px on heparin subq Code Status Full code Disposition Discharge to [facility] Case discussed with media consultant outside sales provider Renee ( ) Admission and Anticipated Discharge Date Admission Date: January 27, 2020 Subjective Pt was seen and examined Lying in bed with no distress Pt said that he feels fine Denies any chest pain, palpitation, dizziness and SOB Physical Exam Physical Exam: General- No acute distress Head- atraumatic Eyes- PERRL, EOMI, ENT- oropharynx clear Neck- supple, no JVD Lungs- clear to auscultation Heart- regular rhythm; no murmur Abdomen- normal bowel sounds, soft, nontender Extremities- no calf tenderness Neuro- alert, oriented x 3; PERRL, EOMI; no facial palsy; no dysarthria Skin- warm & dry Results & Data Results & Data ([facility]) Vital Signs (Past 12 Hours) Vital Signs Temp Pulse Pulse Resp BP Pulse Ox 01/28/20 11:37 36.6 C 85 20 147/90 H 95 01/28/20 07:49 80 01/28/20 07:29 36.5 C 73 20 136/90 94 01/28/20 03:52 36.7 C 75 20 122/86 94
[2020-01-28] MEDS ORDERED: lisinopriL 5 MG TAB PO SCH (15:15)
--- NOTE | 2020-01-28 16:55 | Discharge Summary ---
Date of Service January 28, 2020 Admission HPI Per Admitting Provider History obtained from patient and records. Medical history significant for hypertension, past tobacco abuse. Patient has been incarcerated at [facility] by the last 2 months. Last week, patient noted polyuria, polydipsia, dizziness described as lightheadedness symptoms. Some blurred vision. No chest pain, no S OB, no abdominal pain. Appetite good. Fingerstick glucose done at correctional facility noted to be 600. Patient given subcutaneous insulin and IV fluids upon arrival at the ER. 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 Admission Exam Per Admitting Provider GENERAL: Comfortable, obese, pleasant, no respiratory distress SKIN: Normal color, warm HEENT: [place] palpebral conjunctivae, no ptosis, dry buccal mucosa NECK : Supple, short neck, no tenderness CHEST : CTA, no tenderness HEART : Tachycardic, no obvious murmurs ABDOMEN: Some distention, nontender EXTREMITIES : Minimal LE swelling, no LE tenderness, no other conspicuous deformities noted NEUROLOGIC : Coherent, no facial asymmetry, no other gross focality Principal Diagnosis Newly diagnosed diabetes Acute Kidney injury Hypertension Morbid obesity Discharge Exam General- No acute distress Head- atraumatic Eyes- PERRL, EOMI, ENT- oropharynx clear Neck- supple, no JVD Lungs- clear to auscultation Heart- regular rhythm; no murmur Abdomen- normal bowel sounds, soft, nontender Extremities- no calf tenderness Neuro- alert, oriented x 3; PERRL, EOMI; no facial palsy; no dysarthria Skin- warm & dry Discharge Data Allergies Allergy/AdvReac Type Severity Reaction Status Date / Time No Known Allergies Allergy Unverified 01/26/20 23:08 Consultations 01/27/20 00:14 ED Decision to Admit Stat Ordered Studies XR chest 1V portable CLINICAL HISTORY: renal failure COMPARISON STUDY: No previous studies for comparison. FINDINGS: The cardiac and mediastinal contours are normal. There is no evidence of focal pulmonary consolidation. There is no evidence of failure. No pleural effusions are visualized.[A vague opacity at the left lung base is felt to represent a summation. IMPRESSION: No active disease in the chest. ACT 112: Negative or not required by law. Electronically signed by: Kaleb Gonzales M.D. 01/27/2020 7:17 AM Dictated: 01/27/20716 Transcribed: 01/27/20716 Hospital Course (1) Newly diagnosed diabetes: Was sent for [facility] for evaluation of polyuria, polydipsia, lightheadedness, dizziness worsening Glucose on admission 669 Hba1c 11.2 Anion Gap on admission 12, now 8 Received IVF and was starting on insulin drip Pharmacy on board for glycemic management Insulin drip discontinued Case discussed with Pharmacy recommended 2 options Option 1: insulin 70/30 Option 2: NPH 35 units BID + regular insulin 10unit with each meal Pharmacy recommended insulin 70/30 to take 60 units in AM with breakfast and 30 units in PM with meals Will start on Metformin 500mg daily Discussed with patient about lifestyles modification such as diet, exercise and weight loss Diabetes complication discussed with patient such as renal disease that can lead to ESRD on HD, heart disease, stroke, blindness, amputation, .... Will need diabetic eye exam outpatient Diabetic education Continue monitor BS and and titrate insulin if needs Check Hba1C in 3 months DANA Possible related to dehydration Creatinine on admission 1.7 Received IVF Creatinine back to normal Resume HCTZ on discharge Check BMP in 1 week Hypokalemia Potassium 3.2 today Potassium replaced Monitor BMP HTN BP mildly elevated HCTZ was on hold due to elevated creatinine HCTZ resumed Will start on low dose of Lisinopril 5 mg Continue monitor BP Check BMP in 1 week to monitor electrolytes and renal function Morbid obesity BMI 58 Counseling on diet, exercise and weight loss DVT px on heparin subq Code Status Full code Disposition Discharge to [facility] Case discussed with stonework supervisor provider Renee ( ) Total Time Total Time Spent Total Time Spent (In Minutes): 35 minutes Total Time Includes: Examination of the Patient, Discharge Planning, Medication Reconciliation, Communication With Other Providers and Other Discharge Plan Discharge Items Patient Disposition: Correctional Facility Reason For Visit: HYPERGLYCEMIC CRISIS Discharge Diagnosis: Newly diagnosed diabetes Acute Kidney injury Hypertension Morbid obesity Activity: Resume your previous activity Non-emergency contact: Primary Care Provider and Online Communications Specialist Call non-emergency contact if: you have any medication questions Follow-up/Referrals: Brian CORTES [Primary Care Provider] - Diet: Carb Consistent or DM2 Addtl Attending Provider Instructions: Follow up with your primary care provider Continue monitor your blood sugar and your physician will adjust your insulin accordingly Follow up a healthy diabetic diet and limited concentrated sweet intake Continue monitor your blood pressure Check BMP in 1 week to monitor your electrolytes and renal function Outpatient diabetic eye exam Counseling on weight lost, diet and exercise Check Hba1C in 3 months Pending Studies at Discharge: No Stand-Alone Forms: My [facility] Skilled Items Patient informed of condition?: Yes Discharge Level of Care: Other Communicable Disease: No Discharge Prognosis: Stable Lines: None Urinary Catheter: No Medications and DC Order Prescriptions: New lisinopril [Zestril] 5 mg Tablet 5 mg PO QAM 30 Days Qty: 30 RF: 0 metformin 500 mg tablet extended release 24 hr 500 mg PO DAILY Qty: 30 RF: 0 Novolin 70/30 U-100 Insulin 100 unit/mL (70-30) suspension 30 units SQ UD Qty: 10 RF: 0 Continued hydrochlorothiazide 12.5 mg Capsule 12.5 mg PO DAILY RF: 0 Fungi-Nail 25 % Solution 1 applic TOPICAL DAILY RF: 0 Krames/Other Patient Handouts: Diabetes Healthy Meals, Understanding Type 2 Diabetes Admission Data Admit Date/Time: 01/27/20 00:44 Attending Provider: Alicia Santamaria Admit Provider: Cristi Bhat Primary Care Provider: Brian CORTES Other Providers: Cristi Bhat
== END 2020-01-28 19:00 | DRG 638 ==
LOC: ED 21:54 → 2W 01-27 00:44